=== PATIENT | male | born 1980 | race Two or more races ===

== ENCOUNTER → 2021-02-28 | Outpatient (CLI) | payer OTHER ==
[~2021-02-28] MED LIST: ACET325T9 PO; IBUP200T77 PO; OXYC1TAB15 PO; PROM25TA10 PO
== END ==
LOC: LAB 13:03
PROVIDERS: ATTEND Orthopaedic Surgery
DX: Z53.8 Procedure and treatment not carried out for other reasons (principal); Z01.812 Encounter for preprocedural laboratory examination; M12.011 Chronic postrheumatic arthropathy [Jaccoud], right shoulder; S42.431A Displaced fracture (avulsion) of lateral epicondyle of right humerus, initial encounter for closed fracture; X58.XXXA Exposure to other specified factors, initial encounter; Y93.89 Activity, other specified; Y92.89 Other specified places as the place of occurrence of the external cause; Y99.8 Other external cause status; Z20.822 Contact with and (suspected) exposure to COVID-19
CPT/HCPCS: U0003; U0005

== ENCOUNTER → 2021-03-02 | Outpatient (CLI) | payer OTHER | LOC: LAB 09:34 | PROVIDERS: ATTEND Orthopaedic Surgery | DX: Z01.812 Encounter for preprocedural laboratory examination (principal); Z20.822 Contact with and (suspected) exposure to COVID-19; S42.431A Displaced fracture (avulsion) of lateral epicondyle of right humerus, initial encounter for closed fracture; M19.011 Primary osteoarthritis, right shoulder; X58.XXXA Exposure to other specified factors, initial encounter; Y93.89 Activity, other specified; Y92.89 Other specified places as the place of occurrence of the external cause; Y99.8 Other external cause status | CPT/HCPCS: U0003; U0005 ==

== ENCOUNTER 2021-03-03 09:26 | Day surgery (SDC) | payer OTHER ==
[~2021-03-03] VITALS: Ht 172.7 cm; Wt 117.0 kg
[~2021-03-03 09:26] MED LIST changes: -OXYC1TAB15 PO; -PROM25TA10 PO
[2021-03-03] MEDS ORDERED: IV RINGERS,LACTATED 1000ML 1,000 ML IV SCH (10:30)
[2021-03-03] MEDS ORDERED: ROCURONIUM 50 MG/5 ML VIAL. ONE ×2 (11:10→12:38)
[2021-03-03] MEDS ORDERED: MIDAZOLAM HCL/PF 2 MG/2 ML VIAL. ONE (11:10)
[2021-03-03] MEDS ORDERED: fentaNYL PF VIAL 250 MCG/5 ML VIAL ONE (11:10)
[2021-03-03] MEDS ORDERED: DEXAMETHASONE SOD PHOS 4 MG/ML VIAL ONE ×2 (11:14)
[2021-03-03] MEDS ORDERED: PROPOFOL 10 MG/ML (20ML) VIAL. IV ONE (11:14)
[2021-03-03] MEDS ORDERED: LIDOCAINE 2% PF 5 ML VIAL. ONE (11:14)
[2021-03-03] MEDS ORDERED: ONDANSETRON PF 4 MG/2 ML VIAL. ONE (11:14)
[2021-03-03] MEDS ORDERED: EPINEPHrine VIAL 30 MG/30 ML VIAL ONE (11:47)
[2021-03-03] MEDS ORDERED: BUPIVACAINE-EPI 0.25% 30 ML VIAL KIT. ONE ×2 (11:48)
[2021-03-03] MEDS ORDERED: GLYCOPYRROLATE 1 MG/5 ML VIAL. ONE (13:27)
[2021-03-03] MEDS ORDERED: NEOSTIGMINE METHYLSULFATE 5 MG/5 ML SYRINGE. ONE (13:27)
[2021-03-03] MEDS ORDERED: MORPHINE SULFATE 2 MG/ML VIAL. ONE (14:08)
[2021-03-03] MEDS ORDERED: fentaNYL PF VIAL 100 MCG/2 ML VIAL IVP PRN ×2 (14:15)
[2021-03-03] MEDS ORDERED: PROCHLORPERAZINE 10 MG/2 ML VIAL. IVP PRN (14:15)
[2021-03-03] MEDS: HYDROmorphone 2 MG/ML VIAL IV PRN ×4 (14:15→15:03)
[2021-03-03] MEDS ORDERED: ONDANSETRON PF 4 MG/2 ML VIAL. IVP PRN (14:15)
[2021-03-03] MEDS ORDERED: MORPHINE SULFATE 2 MG/ML VIAL. IVP PRN (14:30)
[2021-03-03] MEDS ORDERED: OXYC1TAB15 PO (14:53)
[2021-03-03] MEDS ORDERED: PROM25TA10 PO (14:54)
[2021-03-03] MEDS ORDERED: oxyCODONE/APAP 5/325 1 TAB TABLET PO ONE ×2 (15:00)
[2021-03-03 15:20] VITALS: BP 156/84
--- NOTE | 2021-03-03 18:40 | PDOC4 ---
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 Impingement syndrome of right shoulder M75.41 Superior glenoid labrum lesion of right shoulder, initial encounter S43.431A Procedure: Right shoulder arthroscopy, surgical distal claviculectomy including distal articular surface (Robert procedure), 10 mm, CPT 04623 Right shoulder arthroscopy, surgical decompression of subacromial space with partial acromioplasty, with coracoacromial ligament release, CPT 44201 Right shoulder open tenodesis of long tendon of biceps, CPT 63263 Surgeon: Rodriguez Bender MD Instructor Dramatic Arts: RALF Quan Anesthesia: General EBL: 50 mL Specimens Obtained: none Complications: none Drains: none Findings: The SLAP tear was debrided but had extension into the biceps anchor, greater than 50% of the biceps width. This necessitated biceps tenodesis. The cuff was intact and normal. Impingement was occurring with a very prominent anterior acromion. The acromioclavicular joint was arthritic with prominent osteophytes. Resection of the acromioclavicular joint was performed along with the subacromial decompression to contour the acromion into a more normal an atomic shape. Implants: Arthrex 7 mm Biceps Swivelock Cyg[place] Indications for Procedure: This 40-year-old man does a lot of weight lifting. He has a painful arthritic acromioclavicular joint. He has a proximal biceps lesion with SLAP tear, and partial extension into the biceps anchor. There is no instability. He does not have a cuff tear on exam. He does have impingement syndrome. I recommended arthroscopy, subacromial decompression, distal clavicle excision, and probably just debridement of the biceps tear. I spoke to him about the possibility of open biceps tenodesis preoperatively. We talked about the potential risks of surgery such as bleeding, infection, stiffness, need for additional surgery, neurovascular injury, or other potential surgical or anesthetic complications. All of his questions about surgery were answered and he desired to proceed. Written consent was obtained. Procedure in Detail: The patient was identified in the preoperative holding area. The correct right shoulder was marked by me. The patient was taken to the operating room where general anesthesia was used. The patient was positioned in the beach chair position with the bony prominences well-padded and the eyes protected. Preoperative antibiotics were given intravenously. A timeout procedure was performed. Under sterile technique 20 mL of bupivacaine with epinephrine was injected into the subacromial space and glenohumeral joint. The limb was then thoroughly prepared with surgical ChloraPrep solution circumferentially. Sterile waterproof arthroscopy shoulder drapes were applied, along with an impervious stockinette over the arm, and a Spider arm brock. Posterior, posterolateral, lateral, and anterior arthroscopy portals were used. The glenohumeral joint showed normal articular surfaces of the humeral head and glenoid. The subscapularis tendon is intact. The glenoid cartilage is normal. The superior labrum had an extensive unrepairable tear with loose flaps of labrum extending into the joint. These were debrided with a shaver. There was some fraying of the biceps anchor at that superior labral attachment, and after shaving debridement, less than 50% of the width of the biceps tendon was remaining. I felt that it required bicep tenodesis at this point. The biceps was further transected in preparation for a tenodesis. The remainder of the rotator cuff appears perfectly attached at the humeral head without any detachment or partial-thickness tearing. The subacromial space was entered. The anterior acromion was prominent and the subacromial space was narrowed. The [employer] Edge thermal energy bipolar device was used for hemostasis and to resect the undersurface periosteum exposing the prominent anterior acromion. A 6.0 mm oval nydia was used for the acromioplasty. A three-stage acromioplasty was performed, with the nydia first laterally, removing anterior acromion, using the distal clavicle as a reference. The nydia was then placed in the posterior portal, and a cutting block technique was used for smoothing of the lateral edge of the acromion tapering the anterior acromion into a Bigliani type I configuration. Final smoothing of the acromion was performed with the nydia again in the lateral portal, and direct arthroscopic visualization. The impingement of the subacromial space was now nicely decompressed. No further impingement appears to be occurring from the acromion, however the arthritic distal clavicle is degenerative with an osteoarthritic distal clavicle articular surface. The nydia was used to resect the entire articular surface of the distal clavicle and 10 mm of distal clavicle bone, completing the [place] arthroscopic distal clavicle excision. The [employer] Edge thermal energy device was used for hemostasis. The arthroscopic instruments were removed. Outer gloves were changed. The skin was prepared a second time with ChloraPrep solution. An anterior incision was used at the deltopectoral interval. Self-retaining retractors were placed. The intertubercular sulcus was identified and careful transection of the sheath encountered the proximal biceps tendon. The proximal edge where there was degeneration was trimmed. A #2 FiberWire suture was used to whipstitch the tendon with a running locking suture pattern. A 7.5 mm fluted reamer was used over a guidepin inferior in the intertubercular sulcus and centered in the groove. Copious saline irrigation was used to remove bone fragments. The Fi berWire suture from the tip of the biceps tendon was now placed at the tip of the setter up lift driver. With tension maintained on the tendon, the tip of the tendon was inserted down the bone socket, and the swivel lock anchor screw was easily deployed securing the tendon within the socket. The outer sutures were tied for additional security. Copious saline irrigation was used. I closed the fascia of the deltoid with #0 Vicryl suture in a [id number] fashion. My or assistant Eligio then completed the subcutaneous closure with #2-0 Vicryl. He closed the portals with #3-0 Prolene. He repaired the skin incision with #3-0 Stratafix, Mastisol and Steri- Strips. He injected an additional 30 mL of bupivacaine with epinephrine. Xeroform was used over the portals. A bulky sterile dressing was applied. A [employer] UltraSling was applied. There were no apparent complications. RODRIGUEZ BENDER MD Mar 03, 2021 18:40
== END 2021-03-03 15:50 | disposition home or self-care (01) ==
LOC: SURG 09:26 → EDUNIT# 12:00 → SURG 15:50
PROVIDERS: ATTEND Orthopaedic Surgery
DX: M19.011 Primary osteoarthritis, right shoulder (principal); M75.41 Impingement syndrome of right shoulder; S43.431A Superior glenoid labrum lesion of right shoulder, initial encounter; Z79.899 Other long term (current) drug therapy; Z98.890 Other specified postprocedural states; Z72.89 Other problems related to lifestyle; X58.XXXA Exposure to other specified factors, initial encounter; Y93.89 Activity, other specified; Y92.89 Other specified places as the place of occurrence of the external cause; Y99.8 Other external cause status
CPT/HCPCS: 23430; 29824; 29826; A4565; A4928; A4930; A6253; A6402; C1713; J0171; J0690; J0780; J1100; J1170; J2270; J2405; J2704; J2710; J3010; J3490; A4452; J2250